=== PATIENT | female | born 1995 | race Caucasian/White ===

== ENCOUNTER 2016-09-12 18:15 | Emergency (ER) | payer OTHER | END 2016-09-12 19:24 | disposition left against medical advice (07) | LOC: ER1 18:15 | DX: Z53.21 Procedure and treatment not carried out due to patient leaving prior to being seen by health care provider (principal) ==

== ENCOUNTER 2016-09-14 17:53 | Emergency (ER) | payer OTHER | END 2016-09-14 21:05 | disposition home or self-care (01) | LOC: ER1 17:53 | DX: Z53.21 Procedure and treatment not carried out due to patient leaving prior to being seen by health care provider (principal) ==

== ENCOUNTER 2022-02-08 09:19 | Emergency (ER) | payer OTHER ==
[~2022-02-08 09:19] MED LIST: PRENATAL VITAM1 EAC8 PO
[2022-02-08 10:51] LABS: HEMOGLOBIN 15.7 gm/dl (12.3-15.3); RED BLOOD COUNT 4.86 M/UL (4.00-5.10); WHITE BLOOD COUNT 7.7 K/UL (4.5-11.0)
[2022-02-08 11:51] LABS: BUN/CREATININE RATIO 14 (0-10)
== END 2022-02-08 18:13 | disposition home or self-care (01) ==
LOC: ER1 09:19
PROVIDERS: Family Medicine
DX: T39.312A Poisoning by propionic acid derivatives, intentional self-harm, initial encounter (principal); F17.210 Nicotine dependence, cigarettes, uncomplicated; Z20.822 Contact with and (suspected) exposure to COVID-19
CPT/HCPCS: 80053; 80307; 85025; 99284; G0480; U0002